=== PATIENT | male | born 1995 | race African-American/Black ===

== ENCOUNTER 2020-03-04 10:06 | Emergency (ER) | payer BC ==
[~2020-03-04] VITALS: Ht 177.8 cm; Wt 82.1 kg
[2020-03-04 10:15] VITALS: Ht 177.8 cm; Wt 82.1 kg
[2020-03-04 11:41] VITALS: BP 107/61
== END 2020-03-04 11:41 | disposition home or self-care (01) ==
LOC: ED 10:06
DX: S86.911A Strain of unspecified muscle(s) and tendon(s) at lower leg level, right leg, initial encounter (principal); X50.9XXA Other and unspecified overexertion or strenuous movements or postures, initial encounter; Y93.89 Activity, other specified; Y92.89 Other specified places as the place of occurrence of the external cause; Y99.8 Other external cause status